=== PATIENT | male | born 1965 | race Caucasian/White ===

== ENCOUNTER → 2019-04-03 08:57 | Outpatient (CLI) | payer MEDICARE | END | disposition home or self-care (01) | LOC: D.HCCARDIO 08:57 | PROVIDERS: ATTEND Internal Medicine Cardiovascular Disease | DX: I25.10 Atherosclerotic heart disease of native coronary artery without angina pectoris (principal) ==

== ENCOUNTER 2019-04-24 10:40 | Outpatient (CLI) | payer MEDICARE ==
[~2019-04-24] VITALS: Ht 180.3 cm; Wt 77.3 kg
--- NOTE | ~2019-04-24 | HEMODYNAMI ---
PATIENT:CALVIN REESE MEDICAL RECORD: [id number] : 61 LOCATION:[facility] ADMISSION DATE: 04/24/19 Generatedon:04/24/201915:03 Patient name: CALVIN REESE Patient #: [id number] SSN: [id number] : 1965 Date of study: 04/24/2019 Page: Of Hemodynamic Procedure Report Patient Data Patient Demographics Procedure consent was obtained First Name: CALVIN Gender: Male Last Name: HUGH : 1965 Middle Initial: OSMIN Age: 53 year(s) Patient #: [id number] Race: SSN: [id number] Additional ID: [id number] Contact details Address: [address] [place] [address] State: [place] City: [place] Zip code: [address] Past Medical History Allergies: No known allergies Admission Admission Data Admission Date: 04/24/2019 Admission Time: 10:40 Arrival Date: 04/24/2019 Arrival Time: 0:00 Admit Source: Other Insurance Payor: Medicare [facility] #: [id number] Height (in.): 70.87 BSA: 1.96 (m2) Height (cm.): 180 BMI: 23.77 (kg/m2) Weight (lbs.): 169.76 Weight (kg.): 77 Lab Results Lab Result Date: 04/24/2019 Lab Result Time: 0:00 Biochemistry Name Units Result Min Max BUN mg/dl 11 --(-*--)-- 7 18 Creatinine mg/dl 1.1 --(--*-)-- 0.6 1.3 eGFR ml/min 73.66914 *-(----)-- 90 120 NONAFRICAN CBC Name Units Result Min Max Hematocrit % 40.2 -*(----)-- 42 54 Hemoglobin g/dl 13.7 --(*---)-- 13.5 17.5 Procedure Procedure Types Cath Procedure Diagnostic Procedure [facility] w/Coronaries Sedation Charges Moderate Sedation up to 15 minutes PCI Procedure Coronary Stent Coronary Stent Initial Hemochron ACT Test Procedure Description Procedure Date Procedure Date: 04/24/2019 Procedure Start Time: 14:30 Procedure End Time: 15:01 Procedure Staff Name Function Mp Gonzalez MD Performing Physician Morro Causey RT Monitor Radha Shultz RN Nurse Juliann Hood RT Scrub Amy Hoyt RT Scrub Florina Mcmahon RT Monitor Procedure Data Cath Procedure Fluoroscopy Diagnostic fluoroscopy Total fluoroscopy Time: 5 time: 5 min min Diagnostic fluoroscopy Total fluoroscopy dose: 667 dose: 667 mGy mGy Contrast Material Contrast Material Type Amount (ml) Isovue 370 122 Entry Location Entry Primary Successful Side Size Upsize Upsize Entry Closure Succes sful Closure Location (Fr) 1 (Fr) 2 (Fr) Remarks Device Remarks Femoral Right 5 Fr 6 Fr Exoseal artery Short Estimated blood loss: 10 ml Diagnostic catheters Device Type Used For End Catheter Placement MULTIPACK Pigtail 5 Fr Procedure catheter MULTIPACK JL 4.0 5Fr Left Coronary catheter Angiography MULTIPACK 3DRC 5Fr Procedure catheter Procedure Complications No complications Procedure Medications Medication Administration Route Dosage Oxygen etCO2 Nasal cannula 2 l/min Lidocaine 2% added to field 20 Heparin Flush Bag added to field 2 bags (1000units/500ml NS) 0.9% NaCl I.V. 100 ml/hr Versed I.V. 2 mg Fentanyl I.V. 50 mcg Versed I.V. 1 mg Heparin Bolus I.V. 7500 units Versed I.V. 1 mg Plavix P.O. 600 mg Hemodynamics Rest BSA: 1.96 (m2) HGB: 13.7 (g/dl) O2 Consumption: Estimated: 222.65 (ml/min) O2 Co nsumption indexed: Estimated:113.6 (ml/min/m) Heart Rate: 57 (bpm) Pressure Samples Time Site Value (mmHg) Purpose Heart Use Rate(bpm) 14:33 LV 135/1,7 Snapshot 55 14:34 AO 113/68(87) Pullback 54 14:34 LV 118/3,16 Pullback 54 Gradients Valve Time Site 1 Site 2 Mean SEP/DFP Peak To Heart Use (mmHg) (sec/min) Peak Rate (mmHg) (bpm) Aortic 14:34 LV AO 9 16 5 54 118/3,16 113/68(87) Calculations Valve P-P Mean Valve Index Valve Source Name Gradient Area Flow (cm2) Aortic 5 9 5 9 Snapshots Pre Cath Intra NCS Post Cath Vital Signs Time Heart Resp SPO2 etCO2 NIBP (mmHg) Rhythm Pain Sedation Rate (ipm) (%) (mmHg) Status Level (bpm) 14:14:08 58 14 96 0 138/88(114) NSR 0 (11) 10(A) , No pain 14:18:24 51 4 95 26.8 124/83(96) NSR 0 (11) 10(A) , No pain 14:22:40 54 12 96 33.6 114/70(87) NSR 0 (11) 10(A) , No pain 14:26:48 55 14 94 34.3 110/57(71) NSR 0 (11) 10(A) , No pain 14:31:00 55 18 94 35.8 107/63(80) NSR 0 (11) 9(A) , No pain 14:35:10 54 13 96 32.8 101/69(83) NSR 0 (11) 9(A) , No pain 14:39:18 55 10 96 32.8 107/66(82) NSR 0 (11) 9(A) , No pain 14:43:26 59 11 96 37.3 111/72(86) NSR 0 (11) 9(A) , No pain 14:47:38 57 15 97 15.6 103/65(76) NSR 0 (11) 9(A) , No pain 14:51:47 60 12 97 34.3 97/63(76) NSR 0 (11) 9(A) , No pain 14:55:53 63 14 97 38.8 115/70(80) NSR 0 (11) 10(A) , No pain 15:00:05 55 13 97 32.8 118/74(87) NSR 0 (11) 10(A) , No pain Medications Time Medication Route Dose Verified Delivered Reason Notes Effectiveness by by 14:22:31 Oxygen etCO2 2 Mp Buffie used for Nasal l/min Carlos Shultz scraper hand cannula 14:22:39 Lidocaine 2% added 20ml Mp Mp for local to vial Carlos Gonzalez MD anesthetic field 14:22:46 Heparin Flush added 2 Mp Mp used for Bag to bags Carlos Gonzalez MD procedure (1000units/500ml field NS) 14:22:55 0.9% NaCl I.V. 100 Mp Buffie Per physician ml/hr Carlos Shultz RN 14:27:04 Fentanyl I.V. 50 Mp Buffie for sedation mcg Carlos Shultz RN 14:27:58 Versed I.V. 2 mg Mp Buffie for sedation Carlos Shultz RN 14:33:41 Versed I.V. 1 mg Mp Buffie for sedation Carlos Shultz RN 14:38:08 Versed I.V. 1 mg Mp Buffie for sedation Carlos Shultz RN 14:46:03 Heparin Bolus I.V. 7500 Mp Buffie for units Carlos Shultz RN anticoagulation 15:01:40 Plavix P.O. 600 Mp Buffie for mg Carlos Shultz RN antiplatelet therapy Procedure Log Time Note 13:51:31 Informed consent obtained and on chart 13:53:48 Procedure Status Elective Heart Cath (OP). 13:53:55 Time tracking: Regular hours (M-F 7:00 - 5:00) 13:54:05 Plan of Care:Hemodynamics will remain stable., Cardiac rhythm will remain stable., Comfort level will be maintained., Respiratory function will remain adequate., Patient/ family verbilizes understanding of procedure., Procedure tolerated without complication., Recovers from procedure without complications.. 13:58:24 Lab Result : BUN 11 mg/dl 13:58:24 Lab Result : Hematocrit 40.2 % 13:58:24 Lab Result : eGFR NONAFRICAN 73.48046 ml/min 13:58:24 Lab Result : Creatinine 1.1 mg/dl 13:58:24 Lab Result : Hemoglobin 13.7 g/dl 14:01:10 Arrival Date: 04/24/2019 12:00:00 AM 14:02:03 Insurance Payor : Medicare 14:02:10 Patient Height : 70.87 inches 14:02:16 Patient Weight : 169.76 lbs 14:02:21 Admit Source: Other 14:02:52 Diagnostic Cath Status : Elective 14:03:02 Morro Causey RT(R) sent for patient. Start room use. 14:05:18 Risk of Mortality: .1 14:05:21 Risk of blood transfusion: .1 14:05:26 Risk of MEENA: .3 14:06:08 Stress Test: yes; abnormal INFERIOR AND SEPTAL WALL 14:06:15 Lab results completed and on chart. 14:12:56 Patient received from Pre/Post Procedure Room to CCL 1 Alert and oriented. Tansferred to table in Supine position. 14:12:57 Warm blankets applied, and bernabe hugger turned on for patient comfort. 14:12:57 Correct patient and procedure confirmed by team. 14:12:58 ECG and BP/O2 sat monitors applied to patient. 14:12:58 Vital chart was started 14:12:59 Baseline sample Acquired. 14:13:02 Rhythm: sinus bradycardia 14:13:04 Full Disclosure recording started 14:13:12 H&P Date Dictated: 04/24/2019 Within 30 days and on chart., H&P Addendum completed by physician on day of procedure. (MUST COMPLETE FOR ALL OUTPATIENTS). 14:13:14 Pre-procedure instructions explained to patient. 14:13:14 Pre-op teaching completed and patient verbalized understanding. 14:13:18 Family in patients room. 14:13:19 Patient NPO since Midnight. 14:13:59 Patient allergic to No known allergies 14:14:01 Is the patient allergic to Iodine/contrast media? No. 14:14:02 Is patient on blood thinner?Yes 14:14:32 XARELTO- LAST DOSE 12 14:14:40 Patient diabetic? No. 14:14:50 Previous problem with sedation/anesthesia? No ? 14:14:51 Snore? Yes 14:14:52 Sleep apnea? No 14:14:53 Deviated septum? No 14:14:54 Opens mouth fully? Yes 14:14:55 Sticks out tongue? Yes 14:14:57 Airway obstruction? No ? 14:14:58 Dentures? No ? 14:15:00 Pre procedure: right dorsailis pedis pulse 2+ Normal; easily identifiable; not easily obliterated 14:15:14 Patient pain scale 0/10 ?. 14:15:25 IV patent on arrival in left hand with 0.9% NaCl at O. 14:15:33 Right groin area was prepped with chlora-prep and draped in sterile fashion 14:15:34 Alarms reviewed by R. N. 14:15:34 Sharps counted by scrub and verified by R.N. 14:15:39 Use device set Femoral Dx 14:15:40 ACIST Syringe (99449) opened to sterile field. 14:15:41 Bag Decanter (2002S) opened to sterile field. 14:15:42 ACIST Hand Control (99985) opened to sterile field. 14:15:42 ACIST Manifold (32726) opened to sterile field. 14:15:43 Tegaderm 4 x 4 (1626W) opened to sterile field. 14:15:44 Medline Cath Pack ([id number]) opened to sterile field. 14:15:45 DIAGNOSTIC Multipack 5Fr catheter set (BT9013) opened to sterile field. 14:15:46 SHEATH 5FR [place] (ETT679) opened to sterile field. 14:15:46 EMERALD Guide Wire (015-923) opened to sterile field. 14:22:31 Oxygen 2 l/min etCO2 Nasal cannula was administered by Radha Shultz RN; used for procedure; Verbal order read back and verified. 14:22:39 Lidocaine 2% 20ml vial added to field was administered by Mp Gonzalez MD; for local anesthetic; Verbal order read back and verified. 14:22:46 Heparin Flush Bag (1000units/500ml NS) 2 bags added to field was administered by Mp Gonzalez MD; used for procedure; Verbal order read back and verified. 14:22:55 0.9% NaCl 100 ml/hr I.V. was administered by Radha Shultz RN; Per physician; Verbal order read back and verified. 14:26:23 --------ALL STOP TIME OUT------ 14:26:24 Final Timeout: patient, procedure, and site verified with staff and physician. All members of the team are in agreement. 14:26:28 Right groin site verified by team. 14:26:32 Fire Safety Assessment: A--An alcohol-based skin anteseptic being used preoperatively., C--Open oxygen or nitrous oxide is being used., D--An ESU, laser, or fiber-optic light is being used. 14:26:39 Physical assessment completed. ASA score P 2 - A patient with mild systemic disease as per Mp Gonzalez MD. 14:26:44 2) 60-89 Mildly reduced kidney function, and other findings (as for stage 1) point to kidney disease. 14:26:49 Maximum allowable contrast dose (3.7 X eGFR X 0.75)205 ml. 14:26:55 Sedation plan: IV Moderate Sedation Medication:Versed, Fentanyl 14:27:04 Fentanyl 50 mcg I.V. was administered by Radha Shultz RN; for sedation; Verbal order read back and verified. 14:27:58 Versed 2 mg I.V. was administered by Radha Shultz RN; for sedation; Verbal order read back and verified. 14:30:38 Procedure started. 14:30:48 Local anesthetic to right femoral artery with Lidocaine 2% by Mp Gonzalez MD.INITIAL ACCESS ONLY 14:32:46 A 5 Fr sheath was inserted into the Right Femoral artery 14:33:41 Versed 1 mg I.V. was administered by Radha Shultz RN; for sedation; Verbal order read back and verified. 14:34:16 A MULTIPACK Pigtail 5 Fr catheter was advanced over the wire and used for Procedure. 14:34:22 LV gram done using QUISPE 14:34:25 LV hemodynamics recorded. 14:34:29 Injector settings: Ml/sec: 5, Volume: 15, 14:34:37 EF : 55 % 14:34:42 Catheter exchanged over wire. 14:34:48 A MULTIPACK JL 4.0 5Fr catheter was advanced over the wire and used for Left Coronary Angiography. 14:35:19 LCA angiography performed. 14:38:05 Catheter exchanged over wire. 14:38:08 Versed 1 mg I.V. was administered by Radha Shultz RN; for sedation; Verbal order read back and verified. 14:38:22 A MULTIPACK 3DRC 5Fr catheter was advanced over the wire and used for Procedure. 14:38:41 RCA angiography performed. 14:40:03 ACCDominant side:Right 14:40:33 Catheter exchanged over wire. 14:40:38 Proceeding to intervention. 14:41:46 GUIDE 6FR XBLAD 3.5 catheter ([id number]) opened to sterile field. 14:41:47 TUBING High Pressure Extension Tubing (Carlos) ([id number]) opened to sterile field. 14:41:48 SHEATH 6FR [place] (TER861) opened to sterile field. 14:41:49 BMW 300cm Straight Egan 2 wire (5486091) opened to sterile field. 14:41:50 INFLATOR Merit Cheikhk (FS0898) opened to sterile field. 14:43:10 Sheath upsized to a 6 Fr Short. 14:43:26 6 Fr XBLAD 3.5 guide catheter was inserted over the wire 14:43:57 Pre PCI Site: Rampart pLAD has 80% stenosis. 14:44:03 BMW 300 wire advanced. 14:46:03 Heparin Bolus 7500 units I.V. was administered by Radha Shultz RN; for anticoagulation; Verbal order read back and verified. 14:47:28 Wire advanced across lesion. 14:54:21 Place stent Inflation Number: 1 A COBRA RX 3.5 X 18 Stent was prepped and advanced across the Prox LAD . The stent was deployed at 10 ARIANA for 0:00 (min:sec) . 14:54:29 Wire removed. 14:54:30 Guide catheter removed. 14:54:31 Stent catheter was removed intact over wire. 14:54:49 EXOSEAL 6Fr (EX600) opened to sterile field. 14:54:59 Sheath removed intact; hemostasis achieved with Exoseal to the Right Femoral artery. 14:55:21 Procedure ended.(Physican Out) 14:55:35 Fluoroscopy time 05.00 minutes. 14:56:09 Fluoroscopy dose: 667 mGy 14:56:09 Flurop Dose total: 667 14:56:20 Dose Area Product 03699 mGy/cm. 14:56:25 Contrast amount:Isovue 370 122ml. 14:56:28 Maximum allowable dose exceeded? No. 14:56:29 Sharps counted by scrub and verified by R.N. 14:56:35 Post-op/insertion site Right Femoral artery dressed using a 4 x 4 and Tegaderm. 14:56:42 Post right femoral artery:stable, soft, clean and dry 14:56:48 Post procedure: right dorsailis pedis pulse 2+ Normal; easily identifiable; not easily obliterated. 14:56:49 Post Procedure Pulses reassessed and unchanged 14:56:53 Post-procedure physical assessment completed. ASA score P 2 - A patient with mild systemic disease as per Mp Gonzalez MD. 14:56:56 Post procedure rhythm: unchanged. 14:56:59 Estimated blood loss: 10 ml 14:57:02 Post procedure instruction explained to patient.Patient verbalizes understanding. 14:57:03 Patient needs reinforcement of post procedure teaching. 14:57:53 ACT drawn and resulted at OUT OF RANGE seconds. (normal therapeutic range 180-240 seconds). 14:58:44 Procedure type changed to Cath procedure, Diagnostic procedure, LHC, C w/Coronaries, Sedation Charges, Moderate Sedation up to 15 minutes, PCI procedure, Coronary Stent, Coronary Stent Initial, Hemochron ACT Test 15:00:09 Procedure and supply charges have been captured, reviewed, submitted and are correct. 15:00:34 Procedure Complication : No complications 15:00:40 [facility] Findings: MVD- PCI performed (see procedure note) 15:01:04 Operative report dictated upon procedure completion. 15:01:04 See physician's report for complete and final results. 15:01:09 Report given to Pre/Post Procedure Room. 15:01:14 Patient transfered to Pre/Post Procedure Room with Stretcher. 15:01:40 Plavix 600 mg P.O. was administered by Radha Shultz RN; for antiplatelet therapy; Verbal order read back and verified. 15:01:46 Vital chart was stopped 15:01:48 Procedure ended. 15:01:48 Full Disclosure recording stopped 15:01:55 End room use (Document Last) 15:02:14 End room use (Document Last) 15:03:05 End room use (Document Last) Intervention Summary Intervention Notes Time ActionType Lesion and Equipment Action# Pressure Duration Attributes Used 14:54:21 Place stent Prox LAD COBRA RX 1 10 00:00 3.5 X 18 Stent Device Usage Item Name Manufacture Quantity Catalog Hospital Part Current Minimal Lot# / Number Charge Number Stock Stock Serial# Code ACIST Syringe Acist 1 91871 818965 519958 527262 20 (45408) Medical Systems Inc Bag Decanter Microtek 1 2001S 120317 86898 775821 5 () Medical Inc. ACIST Hand Acist 1 43944 444749 930377 346233 5 Control Medical (99879) Systems Inc ACIST Manifold Acist 1 98730 952430 868214 675543 5 (92094) Medical Systems Inc Tegaderm 4 x 4 3M 1 1626W 879454 171773 735087 5 (1626W) Medline Cath Medline 1 [id number] 957880 90029 877180 5 Pack ([id number]) DIAGNOSTIC Cardinal 1 BO4488 967637 13115 938836 30 Multipack 5Fr Health catheter set (NO7093) SHEATH 5FR Terumo 1 SUT573 712419 736419 043285 5 [place] (OTQ287) EMERALD Guide Cardinal 1 502-455 020107 015954 632787 5 Wire (502-455) Health MULTIPACK Cardinal 1 339799 5 Pigtail 5 Fr Health catheter MULTIPACK JL Cardinal 1 906858 5 4.0 5Fr Health catheter MULTIPACK 3DRC Cardinal 1 762465 5 5Fr catheter Health GUIDE 6FR Cardinal 1 [id number] 074155 051691 910417 10 XBLAD 3.5 Health catheter ([id number]) TUBING High Merit 1 [id number] 578963 75202 716615 10 Pressure Medical Extension Tubing (Gonzalez) (VN8844E) SHEATH 6FR Terumo 1 PDF819 605649 639438 386988 40 [place] (BST522) BMW 300cm Tate 1 8756837 371370 935097 067131 5 Straight Vascular Egan 2 wire (7909458) INFLATOR Merit Merit 1 SY1020 457569 615522 810448 15 [employer] Medical (KC6049) COBRA RX 3.5 X Celonova 1 [id number] 340594 [id number] [id number] 4 [id number] 18 stent Biosciences ([id number]) EXOSEAL 6Fr Cardinal 1 EX600 184478 116327 431558 10 (EX600) Health Signature Audit Rosenberg Stage Time Signature Unsigned Intra-Procedure 04/24/2019 Florina Mcmahon 3:02:14 PM RT(R) Intra-Procedure 04/24/2019 Radha Shultz RN 3:03:05 PM Intra-Procedure 04/24/2019 Mp Gonzalez MD 3:03:[address] [place] [address]
[2019-04-24] MEDS ORDERED: RISPERDAL3 MG PO (12:32)
[2019-04-24] MEDS ORDERED: CRESTOR10 MG PO (12:32)
[2019-04-24] MEDS ORDERED: OMEPRAZOLE40 MG PO (12:32)
[2019-04-24] MEDS ORDERED: CELEXA20 MG PO (12:33)
[2019-04-24] MEDS ORDERED: XARELTO20 MG PO (12:33)
[2019-04-24] MEDS ORDERED: TRAZODONE HCL150 MG PO (12:34)
[2019-04-24] MEDS ORDERED: PERCOCET 10-321 EAC1 PO (12:34)
[2019-04-24 12:39] VITALS: BP 135/75; Ht 180.3 cm; Wt 77.3 kg
[2019-04-24 13:06] LABS: BASOPHILS 0.2 % (0-2); EOSINOPHILS 1.4 % (0-7); HEMATOCRIT 40.2 % (42.0-54.0); HEMOGLOBIN 13.7 g/dL (13.5-17.5); IMMATURE GRANULOCYTES 0.2 % (0-5); LYMPHOCYTES 29.3 % (15-50); MCH 32.8 pg (26.0-34.0); MCHC 34.1 g/dL (31.0-37.0); MCV 96.2 fL (80.0-100.0); MEAN PLATELET VOLUME 10.4 fL (7.4-10.4); MONOCYTES 6.1 % (2-11); NEUTROPHILS 62.8 % (40-80); PLATELET COUNT 287 10x3/uL (130-400); RBC 4.18 10x6/uL (4.20-6.10); RDW 14.6 % (11.5-14.5); WBC 12.1 10x3/uL (4.8-10.8)
[2019-04-24 13:13] LABS: ANION GAP 11.1 mmol/L (8-16); CALCIUM 8.9 mg/dL (8.5-10.1); CARBON DIOXIDE 28.5 mmol/L (21.0-32.0); CHOL - HDL RATIO 3.8 ratio (2.3-4.9); CREATININE - SERUM 1.1 mg/dL (0.6-1.3); LDL-HDL RATIO 2.2 ratio (1.5-3.5); POTASSIUM - SERUM 3.6 mmol/L (3.5-5.1)
[2019-04-24] MEDS ORDERED: PLAVIX75 MG PO (15:09)
--- NOTE | 2019-04-24 15:11 | NUR ---
PT ARRIVED BY STRETCHER. PLACED ON MONITORS. ASSESSMENT COMPLETED. VSS. FAMILY AT BEDSIDE. DR. TINEO ROUNDED AND SPOKE WITH PT AND PT'S FAMILY. CALL LIGHT WITHIN REACH.
--- NOTE | 2019-04-24 15:26 | NUR ---
PT HAS HX OF CHRONIC BACK PAIN. NOTIFIED DR. TINEO OF PT C/O BACK PAIN 10/17 AT THIS TIME AND NEED FOR SUPINE POSITION UNTIL 18:00. ORDERS RECEIVED FOR PERCOCET WHICH IS A HOME MEDICATION FOR PT.
--- NOTE | 2019-04-24 15:55 | NUR ---
RIGHT GROIN DRESSING C/D/I. NO S/S OF HEMATOMA NOTED. CALL LIGHT WITHIN REACH. VSS. PT RESTING COMFORTABLY. REPORTS PAIN IS IMPROVED AND RATES IT 5/10 AT THIS TIME.
--- NOTE | 2019-04-24 16:28 | NUR ---
PT RESTING COMFORTABLY. VSS. RIGHT GROIN DRESSING C/D/I. NO S/S OF HEMATOMA NOTED. FAMILY HAS BROUGHT HIM FOOD. HE IS TOLERATING DRINK. DENIES NAUSEA. CALL LIGHT WITHIN REACH. FAMILY AT BEDSIDE. NO NEEDS AT THIS TIME.
--- NOTE | 2019-04-24 17:03 | NUR ---
PT RESTING WATCHING TV. DENIES PAIN OR NEEDS. R GROIN DRESSING REMAINS CDI NO BLEEDING OR S/S HEMATOMA NOTED. HR 62, BP 123/65, RR 13, SAT 95 ON 2L/NC. CALL LIGHT IN REACH, AT BEDSIDE.
--- NOTE | 2019-04-24 17:31 | NUR ---
PT RESTING COMFORTABLY, DENIES NEEDS AT THIS TIME. R GROIN REMAINS SOFT, DRESSING CDI NO BLEEDING OR S/S HEMATOMA NOTED. PEDAL PULSES PALPABLE. VSS. CALL LIGHT IN REACH, FAMILY AT BS.
--- NOTE | 2019-04-24 17:56 | NUR ---
R GROIN SOFT, DRESSING CDI NO BLEEDING OR SWELLING NOTED. HOB ELEVATED SLIGHTLY. HR 60M, BP 118/69, RR 12, SAT 95 ON ROOM AIR. O2 REMOVED. CALL LIGHT IN REACH, PT DENIES PAIN OR NEEDS
--- NOTE | 2019-04-24 18:38 | NUR ---
DISCHARGE INSTRUCTIONS REVIEWED W PT AND , BOTH VERBALIZED UNDERSTANDING. IV REMOVED W CATH INTACT, MONITORS REMOVED.
--- NOTE | 2019-04-24 18:40 | NUR ---
PT AMBULATED TO BR, VOIDING W/O DIFFICULITY.
--- NOTE | 2019-04-24 18:47 | NUR ---
PT DISCHARGED VIA WC TO PRIVATE VEHICLE. PT HAD ALL BELONGINGS AND DISCHARGE PAPERWORK IN HAND.
== END 2019-04-24 18:48 | disposition home or self-care (01) ==
LOC: D.CATH 10:40
PROVIDERS: ATTEND Internal Medicine Cardiovascular Disease
DX: I25.119 Atherosclerotic heart disease of native coronary artery with unspecified angina pectoris (principal); R94.30 Abnormal result of cardiovascular function study, unspecified; R06.02 Shortness of breath; Z86.711 Personal history of pulmonary embolism